=== PATIENT | female | born 1985 | race Caucasian/White ===

== ENCOUNTER 2019-07-11 18:37 | Emergency (ER) | payer OTHER ==
[2019-07-11] MEDS ORDERED: predniSONE 20 MG TAB ONE (18:48)
--- NOTE | 2019-07-11 19:48 | RAD ---
PA AND LATERAL CHEST: History: Dyspnea. Comparison: None. FINDINGS: Heart size is within normal limits. Mediastinal structures appear unremarkable. The lungs are clear o f infiltrates. There are no significant bony findings. IMPRESSION: No active intrathoracic disease. POS: [facility]
== END 2019-07-11 19:25 | disposition home or self-care (01) ==
LOC: MADERS 18:37
DX: J45.901 Unspecified asthma with (acute) exacerbation (principal); G43.909 Migraine, unspecified, not intractable, without status migrainosus; F31.9 Bipolar disorder, unspecified; F41.9 Anxiety disorder, unspecified; F90.9 Attention-deficit hyperactivity disorder, unspecified type; Z79.899 Other long term (current) drug therapy; Z79.51 Long term (current) use of inhaled steroids
CPT/HCPCS: 71046; J7512; J7620